=== PATIENT | male | born 1960 | race Caucasian/White ===

== ENCOUNTER → 2016-11-23 | Outpatient (CLI) | payer BC, OTHER ==
--- NOTE | 2016-11-23 11:27 | DI ---
MRI UP EXTREMITY JNT W/O CN,11/23/2016 9:01 AM: Clinical History: Dislocation of left shoulder joint Previous Exam: Plain films from November 15, 2016 Findings: Multiplanar MR images are obtained through the left shoulder without contrast. Mild degenerative changes are noted involving the left acromioclavicular joint. There is normal alignment of the glenohumeral joint. There is some mild increased marrow signal invol ving the inferior margin of the glenoid. There is also some increased signal within the inferior glenohumeral ligament posterior with an avuls ion from the glenoid attachment. The labrum appears to be intact despite the avulsion of the glenohum eral ligament. There are some cystic changes involving the superior portion of the greater tubercle near the inserti on of the rotator cuff. There is also some full-thickness tearing of the supraspinatus tendon without a complete tear. There is a full-thickness near-complete tear of the infraspinatus tendon with some retraction of some of th e fibers. There is also some interstitial tearing near the myotendinous junction of the infraspinatus tendon. The teres minor is intact. The subscapularis muscle demonstrates some edema however, the subscapularis tendon remains intact. The long head of the biceps tendon is well seated within the bicipital groove. There is a small amoun t of fluid within the synovial sheath. There is some fluid within the subacromial bursa. Impression: 1. Glenoid avulsion of the posterior inferior glenohumeral ligament. This is most likely part of a no nosseous Bankart however, there is no definite labral tear identified in conjunction with this lesion . 2. Full-thickness tear of the posterior portion of the infraspinatus tendon involving approximately t he posterior one third of the infraspinatus. There is some retraction of the tendon and some tearing involving the myotendinous junction of the infraspinatus tendon. 3. Cystic changes at the insertion of the supraspinatus tendon. This most likely represents an old or chronic process likely representing an interstitial footplate tear. 4. No fractures, and no osteochondral defects. 5. Mild degenerative changes of the left acromioclavicular joint.
== END ==
LOC: MRI 08:52
PROVIDERS: ATTEND Orthopaedic Surgery
DX: S43.005A Unspecified dislocation of left shoulder joint, initial encounter (principal); S46.812A Strain of other muscles, fascia and tendons at shoulder and upper arm level, left arm, initial encounter
CPT/HCPCS: 73221

== ENCOUNTER → 2017-05-10 | Outpatient (CLI) | payer BC, OTHER ==
[2017-05-10 11:15] LABS: BASOPHILS # (AUTO) 0.08 10*3/UL; BASOPHILS % (AUTO) 1.3 % (0-1); EOSINOPHILS # (AUTO) 0.24 10*3/UL; EOSINOPHILS % (AUTO) 3.9 % (0-8); HEMOGLOBIN 16.2 g/dL (14.0-18.0); LYMPHOCYTES # (AUTO) 1.52 10*3/uL; MEAN CORPUSCULAR HEMOGLOBIN 30.3 PG (27-31); MEAN CORPUSCULAR HGB CONC 33.8 g/dL (33-37); MEAN CORPUSCULAR VOLUME 89.9 FL (80-90); MONOCYTES # (AUTO) 0.61 10*3/UL (0.3-0.8); MONOCYTES % (AUTO) 9.9 % (5-15); RED BLOOD COUNT 5.34 10^6/uL (4.70-6.10)
[2017-05-10 11:23] LABS: PLATELET MORPHOLOGY COMMENT NORMAL MORPHOLOGY (NORM); RBC MORPHOLOGY COMMENT NORMAL MORPHOLOGY (NORM); WBC MORPHOLOGY COMMENT NORMAL MORPHOLOGY (NORM)
[2017-05-10 11:47] LABS: CHOL/HDL RATIO 4.23 RATIO (0-4.0)
[2017-05-10 11:48] LABS: BLOOD UREA NITROGEN 20 mg/dL (7-22); BUN/CREATININE RATIO 22.22 (6-20); CALCIUM 9.1 mg/dL (8.7-10.7); EST GLOMERULAR FILTRATION > 60 (>60 ml/min/1.73m(2)); SERUM ALBUMIN 4.1 g/dL (3.5-4.8)
[2017-05-10 15:53] LABS: FREE T4 (FREE THYROXINE) 1.06 ng/dL (0.93-1.71)
== END ==
LOC: MOB LAB 08:12
PROVIDERS: ATTEND Family Medicine
DX: I10 Essential (primary) hypertension (principal); E78.5 Hyperlipidemia, unspecified; R63.5 Abnormal weight gain; N41.1 Chronic prostatitis; F32.9 Major depressive disorder, single episode, unspecified; F17.200 Nicotine dependence, unspecified, uncomplicated; Z12.5 Encounter for screening for malignant neoplasm of prostate
CPT/HCPCS: 36415; 80053; 80061; 82306; 84439; 84443; 85025; G0103